=== PATIENT | male | born 2000 | race Caucasian/White ===

== ENCOUNTER 2021-07-14 08:27 | Emergency (ER) | payer OTHER, SELFPAY ==
[2021-07-14 08:41] VITALS: BP 120/79; PULSE 92; RESP 18; TEMP 37.6; O2SAT 100
--- NOTE | 2021-07-14 08:42 | ED.URI ---
HPI - URI/Sore Throat General Chief Complaint: Upper Respiratory Infection Stated Complaint: Sore throat, cough Time Seen by Provider: 07/14/21 08:42 Source: patient, family and RN notes reviewed Mode of arrival: ambulatory Limitations: no limitations History of Present Illness HPI Narrative: 21-year-old male presents to the [facility] with complaints of a sore throat and a cough since Saturday. Fever yesterday. Patient has not been vaccinated against COVID MD elicited complaint: sore throat and other (cough) Related Data Home Medications Medication Instructions Recorded Confirmed No Home Medications 07/14/21 07/14/21 Allergies Allergy/AdvReac Type Severity Reaction Status Date / Time No Known Allergies Allergy Verified 07/14/21 08:51 Review of Systems Review of Systems: All systems reviewed & are unremarkable except as noted in HPI and below Constitutional: Constitutional: Reports as per HPI, Denies chills, Reports fever(s) and Denies headache(s) Eyes: Eyes: Reports no additional eye complaints ENT: Reports as per HPI, Denies vertigo, Denies dizziness, Denies headache(s), Denies nasal congestion and Reports sore throat Cardiovascular: Cardiovascular: Reports no additional cardiovascular complaints, Denies chest pain, Denies syncope, Denies rapid heart rate and Denies dyspnea Respiratory: Respiratory: Reports as per HPI, Reports cough, Denies dyspnea and Denies wheezing Gastrointestinal: Gastrointestinal: Reports no additional gastrointestinal complaints, Denies abdominal pain, Denies diarrhea, Denies nausea and Denies vomiting Musculoskeletal: Musculoskeletal: Reports no additional musculoskeletal complaints and Denies numbness Integumentary/Breasts: Skin/Breast: Reports system reviewed and no additional complaints, except as docu Neurologic: Reports system reviewed and no additional complaints, except as documented, Denies vertigo, Denies dizziness, Denies syncope, Denies headache(s), Denies focal weakness and Denies numbness Psychiatric: Psychiatric: Reports no additional psychiatric complaints Allergic/Immunologic: Allergic/Immunologic: Reports no additional allergic/immunologic complaints and Denies wheezing PMFSH Past Medical History Medical History (Updated 07/14/21 @ 10:55 by Rebecca Martínez) No significant medical problems Surgical History Surgical History (Updated 07/14/21 @ 10:55 by Rebecca Martínez) No significant past surgical history Social History Social History (Updated 07/14/21 @ 10:55 by Rebecca Luna Living arrangements: with family Gender identity (if verbalized by the patient): Male Comments At the time of my signature, I reviewed and agree with the nursing past medical, surgical, social, and family history. There is no relevant family history pertinent to the patient complaint. Exam Const: General: cooperative, no acute distress, well developed, alert and ill appearing acutely (Mild) Nutritional Appearance: well nourished Orientation/consciousness: patient oriented x3 Limitations: no limitations HENMT: Head: normal to inspection Ears: external ears normal, TM's normal bilaterally and EAC's normal General nose exam: Normal external nose present, Abnormal mucous membranes and turbinates present boggy; not erythematous and Nasal discharge present clear Face and sinus: normal facial exam Mouth: Yes Normal oral and palatal mucosa present, Yes lip normal and Yes moist mucous membranes Throat: uvula midline, postnasal drainage and no uvular edema Eyes: Conjunctivae: conjunctivae normal Pupils: Equal, round and reactive pupils present Neck: Neck: normal visual inspection, no lymphadenopathy and no meningeal signs Chest: Chest palpation & inspection: normal inspection of the chest Resp: Effort & Inspection: normal respiratory effort and no use of accessory muscles Auscultation: clear to auscultation bilaterally, no crackles, no rales, no rhonchi and no wheezes Cardio:
== END 2021-07-14 09:04 | disposition home or self-care (01) ==
PROVIDERS: Emergency Provider Nurse Practitioner
DX: U07.1 COVID-19 (principal)
CPT/HCPCS: 87426; 99213; C9803; G0463

== ENCOUNTER 2021-09-05 14:46 | Emergency (ER) | payer OTHER, SELFPAY ==
--- NOTE | 2021-09-05 14:47 | ED.SKABFB ---
HPI - Skin/Abscess/Foreign Bdy General Chief complaint: Skin/Abscess/Foreign Body Stated complaint: Skin Sore Time Seen by Provider: 09/05/21 14:47 Source: patient Mode of arrival: ambulatory Limitations: no limitations History of Present Illness HPI narrative: Mr. Espinal is a 21-year-old male patient presenting to the clinic today with complaints of a skin sore x1 day. He reports he gets infected hair sores a lot and he yanked this area out and this morning it became swollen and painful. No fever or chills. No pain with weightbearing. No drainage noted Related Data Allergies Allergy/AdvReac Type Severity Reaction Status Date / Time No Known Allergies Allergy Verified 09/05/21 14:58 Review of Systems Review of Systems: Pertinent positives per HPI. Patient denies any fever, chills, rash, headache, visual changes, dizziness, cough, runny nose, sore throat, shortness of breath, chest pain, palpitations, nausea, vomiting, diarrhea, constipation, abdominal pain, or any urinary issues. PMFSH Past Medical History Medical History No significant medical problems Surgical History Surgical History No significant past surgical history Social History Social History Gender identity (if verbalized by the patient): Male Comments At the time of my signature, I reviewed and agree with the nursing past medical, surgical, social, and family history. There is no relevant family history pertinent to the patient complaint. Exam Narrative: General: Well-developed, well nourished, in no apparent distress Cardio: Regular rate and rhythm, s1 and s2 normal, no murmur appreciated. Resp: Clear to auscultation bilaterally, no rhonchi, rales, wheezing or rubs. Integumentary: [place], warm, and dry, intact without lesion, folliculitis with a localized redness and swelling with induration the size of a golf ball without fluctuance to the right lower lateral leg. Tender to palpation and erythemic. No drainage Course Course Emergency Course: Portions of this record may have been created with voice recognition software. Level of Care: Express Care Visit Vital Signs Vital signs: Vital signs reviewed MDM - Skin/Abscess/Foreign Bdy MDM Narrative Medical decision making narrative: Localized swelling cellulitis to the right lower lateral extremity without fluctuation. At this time I do not see any reason to do incision and drainage due to lack of fluctuation. I will start the patient on a round of doxycycline to treat localized cellulitis. Differential Diagnosis Differential diagnosis: Likely abscess of skin or subcutaneous tissue and other (Insect bite, localized allergy reaction) Discharge Plan Discharge Clinical Impression: Cellulitis Qualifiers: Site of cellulitis: extremity Site of cellulitis of extremity: lower extremity Laterality: right Qualified Code(s): L03.115 - Cellulitis of right lower limb Patient Disposition: Home, Self-Care Condition: Stable Instructions: Antibiotic Form, Cellulitis (ED), Folliculitis (ED) Additional Instructions: Warm compresses as discussed Tylenol Motrin as needed for pain or fever Doxycycline as prescribed If area comes to a head may return to the [facility] to have this incised and drained Follow-up with your PCP in 3 to 5 days if symptoms persist Prescriptions: New doxycycline monohydrate 100 mg capsule 100 mg PO BID 7 Days Qty: 14 RF: 0 Follow-up/Referrals: UNKNOWN,DOCTOR [Non-Staff] - Time of Disposition: 15:06 Quality NIHSS Nursing Documentation ED NIHSS nursing documentation: reviewed/agree
[2021-09-05 14:52] VITALS: BP 126/80; PULSE 98; RESP 14; TEMP 37.2; O2SAT 100
[2021-09-05 14:58] VITALS: BP 126/80; PULSE 98; RESP 14; TEMP 37.2; O2SAT 100
== END 2021-09-05 15:14 | disposition home or self-care (01) ==
LOC: EXPBETH 14:50
PROVIDERS: Emergency Provider Nurse Practitioner Family
DX: L03.115 Cellulitis of right lower limb (principal)
CPT/HCPCS: 99213; G0463

== ENCOUNTER 2023-07-02 10:20 | Emergency (ER) | payer BC, SELFPAY ==
[2023-07-02 10:26] VITALS: BP 126/82; PULSE 80; RESP 20; TEMP 37.1; O2SAT 99
--- NOTE | 2023-07-02 10:51 | ED.URI ---
HPI - URI/Sore Throat General Chief Complaint: Upper Respiratory Infection Stated Complaint: Right Ear Pain/Cough Time Seen by Provider: 07/02/23 10:51 Source: patient, family, RN notes reviewed and old records reviewed Mode of arrival: ambulatory Limitations: no limitations History of Present Illness HPI Narrative: 23 year old male who presents to [facility] care accompanied by significant other with complaints of right ear pressure and pain sore throat,headache, cough, and some bodyaches for the past 6 days. Patient reports that he has had some chills but no documented fevers, Patient reports that he has been taking Mucinex, DayQuil and NyQuil for his symptoms without improvement. Patient denies any shortness of breath with respirations even and nonlabored with no tachypnea noted. MD elicited complaint: cough, sore throat, rhinorrhea, nasal congestion, sinus pain and other (ear pain and body aches) Onset (ago): day(s) (6) Pain scale (0-10): 6 Able to tolerate fluids by mouth: Yes Treatments prior to arrival: other (Mucinex,DayQuil and NyQuil) Related Data Allergies Allergy/AdvReac Type Severity Reaction Status Date / Time No Known Allergies Allergy Verified 07/02/23 10:38 Review of Systems Review of Systems: CONSTITUTIONAL:Reports malaise, chills, no sweats, or documented fever. EYES: Denies visual changes, redness, or discharge. ENT: Reports rhinorrhea, congestion, sinus pain,right otalgia and sore throat. CARDIOVASCULAR: Denies chest pain, palpitations, or edema. RESPIRATORY: Reports cough.? Denies dyspnea. GASTROINTESTINAL: Denies abdominal pain, nausea, vomiting, diarrhea SKIN: Denies rash or itching. MUSCULOSKELETAL: Reports myalgia. NEUROLOGIC :Reports headache. All systems reviewed & are unremarkable except as noted in HPI and below PMFSH Past Medical History Medical History (Updated 07/03/23 @ 20:46 by Hui Howe NP) No significant medical problems Surgical History Surgical History (Updated 07/03/23 @ 20:46 by Hui Howe NP) Hx of tonsillectomy Social History Social History (Updated 07/03/23 @ 20:45 by Hui Howe NP) Smoking status: Never smoker Living arrangements: with family Gender identity (if verbalized by the patient): Male Comments At time of signature, agree with nursing past medical, surgical, social and family history. There is no relevant family history pertinent to the presenting complaint Exam Narrative: GENERAL: Well-appearing, well-nourished, and in no acute distress. HEAD: Normocephalic EYES: PERRLA, conjunctivae clear ENT: Nares clear, turbinates edematous and erythematous, clear discharge. Mucous membranes moist. TM pearly pérez with dull light reflex bilaterally; right tragal tenderness with some irritation to right ear canal.. Oropharynx erythematous without lesions. Tonsils not present and throat without exudate, no drooling, no hoarseness, no trismus, uvula midline. NECK: Supple. No lymphadenopathy CHEST: Clear to auscultation, breath sounds equal. No wheezing, rhonchi, rales, or stridor. No respiratory distress, speaks in full sentences.cough,SAO2 99% on room air HEART: Regular rate and rhythm. No murmur heard. SKIN: Warm, dry, no rash. NEURO: Alert and oriented x3. PSYCH: Normal mood and affect. Course Course Emergency Course: Patient is aware of diagnosis, understands and agrees to treatment plan.? Anticipatory guidance given.? Patient agrees to follow-up as directed and is aware of reasons to seek care at the emergency department. Portions of this record may have been created with voice recognition software Level of Care: Express Care Visit Vital Signs Vital signs: Vital Signs Temperature 37.1 C 07/02/23 10:26 Pulse Rate 80 07/02/23 10:26 Respiratory Rate 20 07/02/23 10:26 Blood Pressure 126/82 07/02/23 10:26 Pulse Oximetry 99 07/02/23 10:26 Oxygen Delivery Room Air 07/02/23 10:
== END 2023-07-02 11:11 | disposition home or self-care (01) ==
PROVIDERS: Emergency Provider Registered Nurse; PCP Family Medicine
DX: H60.501 Unspecified acute noninfective otitis externa, right ear (principal); Z20.822 Contact with and (suspected) exposure to COVID-19
CPT/HCPCS: 87081; 87426; 87804; 87880; 99213; C9803; G0463

== ENCOUNTER 2024-05-16 11:41 | Emergency (ER) | payer BC, SELFPAY ==
--- NOTE | 2024-05-16 11:45 | ED.GENADULT ---
HPI - General Adult General Chief complaint: Upper Respiratory Infection Stated complaint: fever / vomiting Time Seen by Provider: 05/16/24 11:45 Source: patient Mode of arrival: ambulatory Limitations: no limitations History of Present Illness HPI narrative: 23-year-old male patient presents to [facility] with complaints of fever, nausea vomiting that started about late last night at 9:00 p.m.. Patient states that does work overnight. Patient states he has been vomiting off and on all night and last time vomited about 4:00 a.m.. Patient states he was able to keep couple crackers and some bread down this morning but has not been drinking as much. Patient continues to feel nauseated. Patient denies ear pain sore throat. Denies any congestion or flu-like symptoms. Patient states he has been running fevers. Related Data Home Medications Medication Instructions Recorded Confirmed No Home Medications 05/16/24 05/16/24 Allergies Allergy/AdvReac Type Severity Reaction Status Date / Time No Known Allergies Allergy Verified 05/16/24 11:47 Review of Systems Review of Systems: CONSTITUTIONAL: Positive fever, chills, and sweats. EYES: Denies visual changes, redness, or discharge. ENT: Denies rhinorrhea, congestion, sore throat, or otalgia. CARDIOVASCULAR: Denies chest pain, palpitations, or edema. RESPIRATORY: Denies cough or dyspnea. GASTROINTESTINAL: positive abdominal pain, nausea, vomiting, denies diarrhea. GENITOURINARY: Denies dysuria or hematuria. SKIN: Denies rash or itching. MUSCULOSKELETAL: Denies back pain, joint pain, or myalgia. NEUROLOGIC: Denies headache, numbness, or weakness. PSYCHIATRIC: Denies anxiety or depression. PMFSH Past Medical History Medical History No significant medical problems Surgical History Surgical History Hx of tonsillectomy Social History Social History Smoking status: Never smoker Living arrangements: with family Gender identity (if verbalized by the patient): Male Comments Vital signs reviewed Exam Narrative: GENERAL: Well-appearing, well-nourished, and in no acute distress. HEAD: Normocephalic, atraumatic. EYES: PERRLA and EOMI. ENT: Nares clear, no rhinorrhea or epistaxis. Mucous membranes moist. posterior pharynx with no erythema, tonsillar enlargement, exudates or lesions present. Bilateral TMs are clear no erythema foreign bodies the canal. NECK: Supple. No lymphadenopathy CHEST: Clear to auscultation. No respiratory distress. HEART: Regular rate and rhythm. No murmur heard. Normal peripheral pulses. ABDOMEN: Soft, flat, nondistended. guarding Present, norebound tenderness, or rigid. No pulsatilla masses. hyperactive Bowel sounds present in all four quadrants. No organomegaly. positive Bob?s sign. No periumbicial tenderness. No Supra public tenderness or distension. Good femoral pulses bilaterally. No hernia noted. No scars or surface trauma. EXTREMITIES: Normal range of motion. No edema. SKIN: Warm, dry, no rash. NEURO: No focal deficits. Alert and oriented x3. Course Course Level of Care: Express Care Visit Vital Signs Vital signs: Vital Signs Temperature 37.9 C H 05/16/24 11:54 Pulse Rate 129 H 05/16/24 11:54 Respiratory Rate 18 05/16/24 11:54 Blood Pressure 126/79 05/16/24 11:54 Pulse Oximetry 100 05/16/24 11:54 Oxygen Delivery Room Air 05/16/24 11:54 Temperature 37.9 C H 05/16/24 11:54 Pulse Rate 129 H 05/16/24 11:54 Respiratory Rate 18 05/16/24 11:54 Blood Pressure 126/79 05/16/24 11:54 Pulse Oximetry 100 05/16/24 11:54 Oxygen Delivery Room Air 05/16/24 11:54 vital signs reviewed. Transfer Transfered to: [facility] Transportation: Other ( Private vehicle with right) Transfer rationale: transferring patient to [facility] for further evaluation for right upper quadrant abdominal pain, fever, nausea vomiting. Concerns for gallbladder. Accepting physician: Dr. Keys Medical Decision Making [facility] Narrative Medical decision making narrative: discussed with patient that I am concerned that he has something going on with his gallbladder and I think that he needs to be assessed in the emergency department. Discussed with him I am concerned because he is running a fever, he has right upper quadrant tenderness, positive RSV sign, as well as nausea and vomiting. Discussed with him that this could be very serious if goes untreated however if caught early and very treatable. Patient states he would like to discuss with his and they would like to go the emergency department or not. Discussed with him that if he does not wish to go to the emergency department for further evaluation I will have him sign out AMA. Differential Diagnosis Differential Diagnosis: Differential diagnosis: Allergic rhinitis, chronic sinusitis, tonsillitis, acute sinusitis, infectious mononucleosis, seasonal influenza, pertussis, diphtheria, meningococcal disease, viral syndrome, viral bronchitis, RSV, COVID-19 Vital Signs Vital Signs: Vital Signs Temperature 37.9 C H 05/16/24 11:54 Pulse Rate 129 H 05/16/24 11:54 Respiratory Rate 18 05/16/24 11:54 Blood Pressure 126/79 05/16/24 11:54 Pulse Oximetry 100 05/16/24 11:54 Oxygen Delivery Room Air 05/16/24 11:54 Temperature 37.9 C H 05/16/24 11:54 Pulse Rate 129 H 05/16/24 11:54 Respiratory Rate 18 05/16/24 11:54 Blood Pressure 126/79 05/16/24 11:54 Pulse Oximetry 100 05/16/24 11:54 Oxygen Delivery Room Air 05/16/24 11:54 Critical Care Time Critical Care Time Critical Care Time: No Discharge Plan Discharge Clinical Impression: Abdominal pain Patient Disposition: Acute Care Hospital Condition: Stable Instructions: Antibiotic Form Prescriptions: No Action No Home Medications Follow-up/Referrals: PHYSICIAN,PANTS BUSHELER [Primary Care Provider] - Time of Disposition: 12:35
[2024-05-16 11:54] VITALS: BP 126/79; PULSE 129; RESP 18; TEMP 37.9; O2SAT 100
[2024-05-18 10:03] LABS: EDCOVIDSCREEN Negative (Negative); EDINFLUASCREEN Negative (Negative); EDINFLUBSCREEN Negative (Negative)
== END 2024-05-16 12:36 | disposition short-term general hospital (02) ==
PROVIDERS: Emergency Provider Nurse Practitioner Family
DX: R10.11 Right upper quadrant pain (principal); Z20.822 Contact with and (suspected) exposure to COVID-19
CPT/HCPCS: 87426; 87635; 87804; 99212; G0463

== ENCOUNTER 2024-05-16 13:05 | Emergency (ER) | payer BC, SELFPAY ==
--- NOTE | ~2024-05-16 | CT_ITS ---
EXAMINATION: CT abdomen pelvis w con DATE: 05/16/2024 17:49 INDICATION: RLQ pain TECHNIQUE: Computed tomography (CT) of the abdomen and pelvis was performed with 100 mL Omnipaque-350 intravenous contrast. Automated exposure control and iterative reconstruction technique were employe d. The dose-length product was 216.90 mGy-cm. COMPARISON: None. FINDINGS: Lower thorax: Unremarkable Liver: Normal. Biliary/Gallbladder: Gallbladder is normal. No bile duct dilation. Pancreas: No mass or duct dilation. Spleen: Normal. Adrenals:No mass. Kidneys: No suspicious mass, obstructing stone, or hydronephrosis. GI tract: No small or large bowel dilation. Normal appendix. Mesentery/Peritoneum: No ascites, mass, or free air. Retroperitoneum: No mass. Pelvis: Pelvic organs are within normal limits. Soft Tissues: Soft tissues and body wall unremarkable. Bones: No acute osseous finding. IMPRESSION: No acute abdominopelvic process detected. Reviewed, dictated and finalized at location [facility] [employer]
[2024-05-16 13:10] VITALS: BP 143/94; PULSE 110; RESP 16; TEMP 36.9; O2SAT 100
[2024-05-16 15:38] LABS: Basophils Percent Auto 0.4 % (0.2-1.2); Eosinophils Percent Auto 0.2 % (0-4.4); Hematocrit 44.3 % (42.0-52.0); Hemoglobin 14.7 g/dL (14.0-18.0); Immature Granulocyte Absolute 0.01 K/mm3 (0.00-0.031); Immature Granulocyte Percent A 0.2 % (0-0.5); Lymphocytes Absolute Auto 1.13 K/mm3 (0.9-3.2); Lymphocytes Percent Auto 20.7 % (18.3-44.2); Mean Corpuscular HGB Conc 33.2 g/dl (32-36); Mean Corpuscular Hemoglobin 26.6 pg (26-34); Mean Corpuscular Volume 80.3 fl (80-100); Mean Platelet Volume 11.7 fl (7.4-10.4); Monocytes Absolute Auto 0.6 K/mm3 (0.1-0.6); Monocytes Percent Auto 10.5 % (2.6-8.5); Neutrophils Absolute Auto 3.7 K/mm3 (1.3-6.7); Platelet Count Result 166 k/mm3 (150-375); Red Blood Count 5.52 M/mm3 (4.6-6.20); Red Cell Distribution Width 12.9 % (11.5-14.5); White Blood Count 5.5 K/mm3 (4.5-10.0)
[2024-05-16 15:48] LABS: Alanine Aminotransferase 24 U/L (6-50); Albumin Level 5.1 g/dL (3.5-5.1); Alkaline Phosphatase 57 U/L (38-126); Anion Gap 10 mmol/L (4-12); Aspartate Amino Transferase 32 U/L (17-59); Bilirubin,Total 1.1 mg/dL (0.2-1.3); Blood Urea Nitrogen 12 mg/dL (9-20); Calcium 9.7 mg/dL (8.4-10.2); Carbon Dioxide 29 mmol/L (22-30); Chloride 100 mmol/L (98-107); Estimated CRCL calculation 91 ml/min; Estimated Glomerular Filt Rate > 60; Glucose 98 mg/dL (65-110); Lipase 64 U/L (23-300); Potassium 3.6 mmol/L (3.4-5.0); Sodium 139 mmol/L (137-145)
[2024-05-16 16:18] LABS: Add Urine Microscopic? NO; Appearance Urine Clear (Clear); Bilirubin Urine Negative (Negative); Blood Urine Negative (Negative); Color Urine Yellow (Yellow); Glucose Urine UA Negative (Negative); Ketones Urine 3+ mg/dL (Negative); Leukocyte Esterase Ur Negative LEU/UL (Negative); Nitrate Urine Negative (Negative); Protein Urine Negative (Negative); Specific Grav Ur 1.028 (1.001-1.035); pH Urine 5.5 (5.0-9.0)
[2024-05-16 16:23] VITALS: BP 129/77; PULSE 90; RESP 18; O2SAT 100
[2024-05-16] MEDS: ONDANSETRON INJ 4 MG/2 ML VIAL IV PUSH (16:23)
[2024-05-16] MEDS: SODIUM CHLORIDE 0.9% IV 1,000 ML 999 ML IV CONT (16:23)
--- NOTE | 2024-05-16 16:41 | PC.NURSE ---
No rebound tenderness noted. No emesis at this time.
--- NOTE | 2024-05-16 16:56 | ED_ITS ---
HPI - General Adult General Chief complaint: Nausea/Vomiting/Diarrhea Stated complaint: n/v, abd pain Time Seen by Provider: 05/16/24 15:42 History of Present Illness HPI narrative: Patient is a 23-year-old male who presents ER with nausea vomiting as well as diarrhea. Occurred overnight while he was at work. Went to urgent care this morning and had right lower quadrant abdominal pain for the provider who examined him who referred him to the ER. Patient has no pain at rest but does have discomfort with palpation. No fevers or chills or sweats. No known sick contacts. Related Data Allergies Allergy/AdvReac Type Severity Reaction Status Date / Time No Known Allergies Allergy Verified 05/16/24 13:09 Review of Systems Review of Systems: All systems reviewed & are unremarkable except as noted in HPI and below Constitutional: Constitutional: Reports no additional constitutional com plaints Cardiovascular: Cardiovascular: Reports no additional cardiovascular complaints Respiratory: Respiratory: Reports no additional respiratory complaints Gastrointestinal: Gastrointestinal: Reports abdominal pain, Reports diarrhea, Reports nausea and Reports vomiting Genitourinary: Genitourinary: Reports no additional male genitourinary complaints [facility] Past Medical History Medical History No significant medical problems Surgical History Surgical History Hx of tonsillectomy Social History Social History Smoking status: Never smoker Living arrangements: with family Gender identity (if verbalized by the patient): Male Exam Narrative: GENERAL: Well-appearing, well-nourished, and in no acute distress. HEAD: Normocephalic, atraumatic. ENT: Mucous membranes moist. NECK: Supple. CHEST: Clear to auscultation. No respiratory distress. HEART: Regular rate and rhythm. Normal peripheral pulses. ABDOMEN: Soft, Tender palpation right lower quadrant with guarding, nondistended. EXTREMITIES: Normal range of motion. No edema. SKIN: Warm, dry, no rash. NEURO: Alert and oriented x3. PSYCH: Normal mood and affect. Course Course Emergency Course: patient feels improved. No appendicitis. Discharge home with supportive care. Vital Signs Vital signs: Vital Signs Temperature 98.5 F 05/16/24 13:10 Pulse Rate 110 H 05/16/24 13:10 Respiratory Rate 16 05/16/24 13:10 Blood Pressure 143/94 H 05/16/24 13:10 Pulse Oximetry 100 05/16/24 13:10 Temperature 98.5 F 05/16/24 13:10 Pulse Rate 90 05/16/24 16:23 Respiratory Rate 18 05/16/24 16:23 Blood Pressure 129/77 05/16/24 16:23 Pulse Oximetry 100 05/16/24 16:23 Medical Decision Making Vital Signs Vital Signs: Vital Signs Temperature 98.5 F 05/16/24 13:10 Pulse Rate 110 H 05/16/24 13:10 Respiratory Rate 16 05/16/24 13:10 Blood Pressure 143/94 H 05/16/24 13:10 Pulse Oximetry 100 05/16/24 13:10 Temperature 98.5 F 05/16/24 13:10 Pulse Rate 90 05/16/24 16:23 Respiratory Rate 18 05/16/24 16:23 Blood Pressure 129/77 05/16/24 16:23 Pulse Oximetry 100 05/16/24 16:23 Lab Data 05/16/24 15:32 05/16/24 15:32 Labs: Lab Results 05/16/24 05/16/24 Range/Units 15:32 16:09 WBC 5.5 (4.5-10.0) K/mm3 RBC 5.52 (4.6-6.20) M/mm3 Hgb 14.7 (14.0-18.0) g/dL Hct 44.3 (42.0-52.0) % MCV 80.3 (80-100) fl MCH 26.6 (26-34) pg MCHC 33.2 (32-36) g/dl RDW 12.9 (11.5-14.5) % Plt Count 166 (150-375) k/mm3 MPV 11.7 H (7.4-10.4) fl Immature Gran % (Auto) 0.2 (0-0.5) % Neut % (Auto) 68.0 (45.5-73.1) % Lymph % (Auto) 20.7 (18.3-44.2) % [place] % (Auto) 10.5 H (2.6-8.5) % Eos % (Auto) 0.2 (0-4.4) % Baso % (Auto) 0.4 (0.2-1.2) % Lymph # (Auto) 1.13 (0.9-3.2) K/mm3 [place] # (Auto) 0.6 (0.1-0.6) K/mm3 Eos # (Auto) 0.0 (0-0.3) K/mm3 Baso # (Auto) 0.0 (0.0-0.1) K/mm3 Abs Immat Gran (auto) 0.01 (0.00-0.031) K/mm3 Absolute Neuts (auto) 3.7 (1.3-6.7) K/mm3 Absolute Nucleated RBC 0.000 (0.0-0.012) K/mm3 Nucleated RBC % 0.0 (0.0-0.2) % Sodium 139 (137-145) mmol/L Potassium 3.6 (3.4-5.0) mmol/L Chloride 100 (98-107) mmol/L Carbon Dioxide 29 (22-30) mmol/L Anion Gap 10 (4-12) mmol/L BUN 12 (9-20) mg/dL Creatinine 1.00 (0.7-1.3) mg/dL Estim Creat Clear Calc 91 ml/min Estimated GFR > 60 (59 - ) Glucose 98 (65-110) mg/dL Calcium 9.7 (8.4-10.2) mg/dL Total Bilirubin 1.1 (0.2-1.3) mg/dL AST 32 (17-59) U/L ALT 24 (6-50) U/L Alkaline Phosphatase 57 (38-126) U/L Total Protein 8.0 (6.3-8.2) g/dL Albumin 5.1 (3.5-5.1) g/dL Lipase 64 (23-300) U/L Urine Color Yellow (Yellow) Urine Appearance Clear (Clear) Urine pH 5.5 (5.0-9.0) Ur Specific [place] 1.028 (1.001-1.035) Urine Protein Negative (Negative) mg/dL Urine Glucose (UA) Negative (Negative) mg/dL Urine Ketones 3+ H (Negative) mg/dL Ur Blood (Man) Negative (Negative) Urine Nitrate Negative (Negative) Urine Bilirubin Negative (Negative) Urine Urobilinogen 1.0 (<2.0) mg/dL Leukocyte Esterase Rfl Negative (Negative) [place]/UL Imaging Data Radiologist's impression: ITS Impressions Abdomen/Pelvis CT 05/16/24 18:23 IMPRESSION: No acute abdominopelvic process detected. Discharge Plan Discharge Clinical Impression: Gastroenteritis Patient Disposition: Home, Self-Care Condition: Stable Instructions: Gastroenteritis (ED) Additional Instructions: Please drink plenty of fluids at home. Return to the emergency department if you develop high fevers, have persistent severe abdominal pain, or have bloody stools or vomit, as these could be signs of a more serious medical emergency. Return to the emergency department if you are unable to keep down liquids because of severe nausea/vomiting. Prescriptions: New ondansetron 4 mg tablet,disintegrating 4 mg PO Q6H PRN (Reason: nausea and vomiting) Qty: 10 0RF Follow-up/Referrals: PHYSICIAN,ASSORTER LAUNDRY [Primary Care Provider] - Eric Romano MD [Physician] - 1 Week Stand Alone Forms: Work/School Release IP
[2024-05-16 17:09] VITALS: BP 109/73; PULSE 90; RESP 18; O2SAT 100
--- NOTE | 2024-05-16 17:30 | PC.NURSE ---
RN called CT scan inquiring about delay. CT currently has [address] Keys notified
--- NOTE | 2024-05-16 18:26 | PC.NURSE ---
Pt verbalizes pain & nausea free, c/o hungry. Dr. Keys informed
[2024-05-16 19:09] VITALS: BP 107/76; PULSE 78; RESP 16; TEMP 36.8; O2SAT 100
== END 2024-05-16 19:11 | disposition home or self-care (01) ==
PROVIDERS: Physician Assistant; Emergency Provider Emergency Medicine
DX: K52.9 Noninfective gastroenteritis and colitis, unspecified (principal)
CPT/HCPCS: 36415; 74177; 80053; 81003; 83690; 85025; 96361; 96374; 99284; J2405; J7030; Q9967